=== PATIENT | female | born 1965 | race Caucasian/White ===

== ENCOUNTER 2023-07-17 18:35 | Inpatient (IN) | payer OTHER, SELFPAY ==
--- NOTE | ~2023-07-17 | XR_ITS ---
EXAMINATION: XR CHEST CLINICAL INFORMATION: Pain COMPARISON: None available. TECHNIQUE: Frontal view of the chest was obtained. FINDINGS: Cardiac and mediastinal contours are normal. The lungs are clear. No pleural effusion or pneumothorax. Degenerative changes of the spine. XR/XR chest 1V IMPRESSION: No evidence for acute disease in the chest.
--- NOTE | ~2023-07-17 | US_ITS ---
EXAMINATION: US ABDOMEN LIMITED CLINICAL INFORMATION: Nausea, vomiting, fatty liver. COMPARISON: CT abdomen and pelvis of 07/17/2023. TECHNIQUE: Real-time imaging of the right upper quadrant abdominal viscera. Limited visualization due to bowel gas and body habitus. FINDINGS: PANCREAS: Limited visualization of pancreatic tail and head. Imaged portion of pancreatic body is unremarkable. LIVER: Nodular hepatic contour with diffusely heterogeneous and increased echogenicity of hepatic echotexture concerning for hepatocellular disease, possibly with associated sclerosis as noted on prior CT scan. Severely limited visualization. GALLBLADDER: Multiple gallstones. Gallbladder wall thickening of 4-7 mm. Possible edematous changes in the gallbladder wall. Possible trace pericholecystic fluid is difficult to evaluate due to limited visualization. COMMON BILE DUCT: Normal in caliber measuring 4 cm in diameter. RIGHT KIDNEY: No hydronephrosis. No renal calculi. Limited visualization. The kidney measures 10.5 cm in maximum dimension. FREE FLUID: None. US/US abdomen limited IMPRESSION: 1. Nodular hepatic contour with diffusely heterogeneous and increased echogenicity of hepatic echotexture concerning for hepatocellular disease, possibly with associated sclerosis as noted on prior CT scan. Severely limited visualization. 2. Multiple gallstones. Gallbladder wall thickening of 4-7 mm. Possible edematous changes in the gallbladder wall. Possible trace pericholecystic fluid is difficult to evaluate due to limited visualization. Correlation with clinical exam and possible HIDA scan recommended. This study was presented today 07/18/2023 for interpretation. Stat results provided at this time as requested by referring provider.
--- NOTE | ~2023-07-17 | CT_ITS ---
EXAMINATION: CT ABDOMEN AND PELVIS WITH CONTRAST CLINICAL INFORMATION: Vomiting COMPARISON: None available. TECHNIQUE: Multidetector volumetric images were obtained from the superior aspect of the liver through the pubic symphysis following administration 85 mL of Omnipaque 350 intravenous contrast. Sagittal and coronal reformatted images were obtained on the technologist's workstation. Oral contrast: Yes This CT examination was performed using dose optimization techniques as appropriate, variously including the following: *Automated exposure control *Adjustment of mA and/or kV according to patient size (this includes techniques or standardized protocols for targeted exams where dose is matched to indication/reason for exam; i.e. extremities or head) *Use of iterative reconstruction technique DLP: 556 mGy-cm FINDINGS: LUNG BASES: The visualized lung bases are unremarkable. LIVER, GALLBLADDER, AND BILIARY TREE: Cirrhotic appearing liver. No focal liver lesion. Upper normal-size gallbladder and small gallstones. Question small amount of pericholecystic fluid or gallbladder wall edema adjacent to the liver. No generalized ascites. PANCREAS: Unremarkable. SPLEEN: Slightly enlarged spleen measuring 13.5 cm. ADRENAL GLANDS: 1 cm low-attenuation left adrenal nodule suggestive of a benign lipid rich adenoma. No imaging follow-up recommended. Normal right adrenal gland. KIDNEYS AND URETERS: The kidneys are normal in size, shape, and attenuation. No hydronephrosis, hydroureter, or calculi seen. No perinephric stranding. BLADDER: Unremarkable. GASTROINTESTINAL TRACT: Diverticulosis of the colon. No evidence of diverticulitis. The small and large bowel are unremarkable. The appendix is unremarkable. ABDOMINAL WALL: No significant hernia is appreciated. LYMPH NODES: Normal. VASCULAR: Unremarkable. PELVIC VISCERA: Question fibroid uterus. OSSEOUS STRUCTURES: Degenerative changes of the spine and hip joints. CT/CT abdomen pelvis w IV con IMPRESSION: Chronic appearing liver. Upper normal-size gallbladder, gallstones and question of small amount of pericholecystic fluid versus gallbladder wall edema adjacent to the liver. If there is clinical concern of cholecystitis, follow-up ultrasound would be recommended. Slightly enlarged spleen. Diverticulosis. Probable fibroid uterus. Fleischner guidelines were followed.
[2023-07-17 18:45] VITALS: BP 232/113; PULSE 59; RESP 16; TEMP 36.5; O2SAT 99; BMI 27.5
--- NOTE | 2023-07-17 18:48 | ED_ITS ---
HPI - Nausea/Vomiting/Diarrhea General Chief complaint: General Medical Stated complaint: high bp, vomiting, nausea sent from urgent care Time Seen by Provider: 07/17/23 19:39 Source: patient, RN notes reviewed and old records reviewed Mode of arrival: ambulatory Limitations: no limitations History of Present Illness ED Provider: García HESTER Narrative: 58-year-old female with a past medical history significant for untreated hypertension presents for evaluation of dizziness and high blood pressure. The patient reports she has been having dizziness for the last 2 days with associated nausea and vomiting. She denies any pain including headache, chest pain, abdominal pain She reports that she went to an urgent care earlier today due to the dizziness and was found to be hypertensive with a blood pressure over 230 systolic. Patient states that she has been on blood pressure medication years ago but she had issues with her primary doctor getting it refilled and just stopped taking it on her own She denies any other complaints or concerns at this time She does admit that her co-worker who she was recently hang out with 4 days ago was diagnosed with COVID-19 today Patient denies any cough, shortness of breath but did state that she would intermittent subjective fevers Associated nausea: Yes Related Data Home Medications ?Medication ?Instructions ?Recorded ?Confirmed No Known Home Meds 07/18/23 07/18/23 Allergies Allergy/AdvReac Type Severity Reaction Status Date / Time No Known Allergies Allergy Verified 07/17/23 18:47 Review of Systems 2 Constitutional: Constitutional: Denies body ache(s), Denies chills, Reports fever(s) and Denies headache(s) Eyes: Eyes: Denies blurry vision ENT: Reports dizziness and Denies headache(s) Cardiovascular: Cardiovascular: Denies chest pain and Denies dyspnea Respiratory: Respiratory: Denies cough and Denies dyspnea Gastrointestinal: Gastrointestinal: Denies abdominal pain, Reports nausea and Reports vomiting Musculoskeletal: Musculoskeletal: Denies back pain Integumentary/Breasts: Skin/Breast: Denies rash Neurologic: Reports dizziness and Denies headache(s) [facility] Past Medical History Medical History (Updated 07/18/23 @ 01:42 by Isabelle Pearce MD) Thrombocytopenia Hypertension Fatty liver Social History Social History Patient Tobacco Use Status: Never used Tobacco Smoked in Last 30 Days: No Use of substances other than those prescribed or required for medical reasons: No Advance Directives: No Advance Directives Information Provided: No Do you have a plan to hurt others: No Plan Nutrition Risks: No Nutritional Risk Patient : No Physical Exam 2 Vital Signs: Vital Signs: Last Vital Signs Temp 98.0 F 07/18/23 11:36 Pulse 63 07/18/23 11:36 Resp 16 07/18/23 11:36 BP 160/90 H 07/18/23 11:36 Pulse Ox 97 07/18/23 11:36 O2 Del Method Room Air 07/18/23 11:36 BMI result Body Mass Index 27.5 Const: General: healthy appearing, comfortable, no acute distress, alert and awake Nutritional Appearance: well nourished Orientation/consciousness: p atient oriented x3 HEENT: Head: Yes normocephalic and Yes atraumatic Eyes: Eyelids: Yes eyelids normal Conjunctivae: conjunctivae normal S clerae: sclerae normal Corneas: corneas normal Pupils: Equal, round and reactive pupils present EOM: EOMs intact bilaterally Resp: Effort & Inspection: normal respiratory effort, able to speak in complete sentences, no audible wheezes and not labored Auscultation: clear to auscultation bilaterally Cardio: Rate: regular rate Rhythm: regular rhythm GI: Inspection: No distended Palpation (GI): Soft to palpation, not firm, nontender, no guarding and not rigid Skin: General skin exam: no rashes or lesions noted and elasticity normal Neuro: General: patient oriented x3 Cranial nerves: Yes Equal, round and reactive pupils present and Yes Bilaterally intact EOM present Cognition (Neuro): normal cognition Course Course Course Narrative: This is a Rapid Medical Examination (RME) performed by Dania Leonard PA-C in triage. Full HPI, ROS, assessment and treatment plan per primary provider in the Main ED. 58 yo female hx of uncontrolled HTN presents to the ED with vomiting x3 days. poop PO intake. endorses asso dizziness. Seen at urgent care today, noted to have high blood pressure and was sent to ED for evaluation. Used to take lisinopril and amlodipine however has not taken these in years. states her symptoms feels like vertigo. denies headache, vision changes, abdominal pain, flank pain, dysuria, hematuria. Plan: labs, EKG Medications Administered Generic Name Dose Route Start Last Admin Trade Name Freq PRN Reason Stop Dose Admin Amlodipine Besylate 5 mg 07/18/23 09:00 07/18/23 08:39 Amlodipine Besylate 5 Mg Tablet PO 5 mg DAILY MICHAEL Administration Protocol Ceftriaxone Sodium 1 gm/ 50 mls @ 100 mls/hr 07/18/23 11:00 07/18/23 11:33 Sodium Chloride IV 100 mls/hr Q24H MICHAEL Administration Lisinopril 20 mg 07/18/23 09:00 07/18/23 08:39 Lisinopril 20 Mg Tablet PO 20 mg DAILY MICHAEL Administration Protocol Ondansetron HCl 4 mg 07/17/23 23:46 07/18/23 06:23 Ondansetron Hcl 4 Mg/2 Ml Vial IVPUSH 4 mg Q8H PRN Administration Nausea and Vomiting Sodium Chloride 3 ml 07/18/23 00:00 07/18/23 08:56 0.9 % Sodium Chloride Flush 3 Ml Syringe IVFLUSH Not Given QSHIFT MICHAEL Discontinued Medications Generic Name Dose Route Start Last Admin Trade Name Freq PRN Reason Stop Dose Admin Amlodipine Besylate 5 mg 07/18/23 01:35 07/18/23 02:53 Amlodipine Besylate 5 Mg Tablet PO 07/18/23 01:36 5 mg ONCE ONE Administration Protocol Aspirin 324 mg 07/17/23 22:50 07/18/23 00:07 Aspirin 81 Mg Tab.Chew PO 07/17/23 22:51 324 mg ONCE ONE Administration Iohexol 85 ml 07/17/23 21:30 07/17/23 21:32 Iohexol 350 Mg/Ml 100 Ml Infus..Btl IV 07/17/23 21:31 85 ml ONCE ONE Administration Labetalol HCl 10 mg 07/17/23 19:54 07/17/23 21:13 Labetalol Hcl 100 Mg/20 Ml Vial IVPUSH 07/17/23 19:55 10 mg ONCE ONE Administration Lisinopril 10 mg 07/17/23 22:52 07/18/23 00:08 Lisinopril 10 Mg Tablet PO 07/17/23 22:53 10 mg ONCE ONE Administration Protocol Ondansetron HCl 4 mg 07/17/23 19:54 07/17/23 21:03 Ondansetron Hcl 4 Mg/2 Ml Vial IVPUSH 07/17/23 19:55 4 mg ONCE ONE Administration Potassium Chloride 40 meq 07/17/23 19:57 07/17/23 21:03 Potassium Chloride Er 20 Meq Tab.Er.Prt PO 07/17/23 19:58 40 meq ONCE ONE Administration Potassium Chloride 20 meq 07/18/23 08:01 07/18/23 08:39 Potassium Chloride Er 20 Meq Tab.Er.Prt PO 07/18/23 08:02 20 meq ONCE ONE Administration Medical Decision Making Medical Decision Making [facility] Narrative: 58-year-old female with past medical history as documented above presents for evaluation of dizziness. She was found to be hypertensive. On arrival to the ED she is quite hypertensive as high as 238/115. It is unclear what her baseline is but she does admit to not having been taking her blood pressure medications for at least a few years.. Her heart rate is in the 70s during my evaluation, will treat with labetalol 10 mg IV once. Will continue to follow closely. We will give her Zofran for her reported nausea. The patient tested negative for COVID-19, she has no pain anywhere including abdominal pain or tenderness on exam. However she does have a slight leukocytosis with vomiting and a slightly elevated T bili to 1.4 and subjective fevers. The patient does admit to having fatty liver and has a very mild transaminitis. We will get a CT scan of the abdomen pelvis. Patient's EKG does not show any acute ischemic changes, but her troponin was elevated to 212. Plan for repeat trop at the 3 hour veronika. She denies any chest pain over the last few days or currently Differential Diagnosis Differential Diagnoses: The differential diagnosis associated with the presentation includes Hypertension Hypertensive urgency NSTEMI PE less likely Cholecystitis less likely Medication noncompliance Admission/Observation Consideration of admission/observation: Escalation of care including admission/observation considered Lab Data [facility] Lab Attestation statement: I reviewed the patient's lab results. Slight leukocytosis to 11.2 K. the patient's hemoglobin and hematocrit are slightly above normal at 16.9 and 47.4. This may be related to hypovolemia. Patient does have a [place]ocyt[place] [address], but unclear etiology at this time. Her differential does show a left shift with 80% neutrophils. Chemistries are significant for a potassium of 3.0 which is likely related to her vomiting over the last 2 days. She has not on any diuretics. Glucose is elevated to 128. She is not diabetic there is no evidence of DKA. Patient's T bili is elevated to 1.3 which may be related to vomiting but also may related to her history of fatty liver. Her AST and ALT are slightly elevated also consistent with her history of fatty liver. Troponin elevated to 212 which may be related to her significant hypertension. 07/18/23 04:54 07/18/23 04:54 Labs: Lab Results 07/17/23 07/17/23 07/17/23 Range/Units 19:05 20:01 22:01 WBC 11.2 H (4.8-10.8) X10*3/uL RBC 4.93 (4.20-5.50) X10*6/uL Hgb 16.9 H (12.0-16.0) g/dl Hct 47.4 H (37.0-47.0) % MCV 96.1 (80.0-98.0) fL MCH 34.3 H (27.0-33.0) pg MCHC 35.7 H (31.0-35.0) g/dl RDW 13.6 (11.0-16.0) % Plt Count 52 L (160-400) X10*3/uL MPV 11.9 (9.4-12.3) fL Immature Gran % (Auto) 0.4 (0.0-0.4) % Neut % (Auto) 80.7 H (45-73) % Lymph % (Auto) 11.5 L (20-40) % Crawford % (Auto) 6.4 (2-11) % Eos % (Auto) 0.6 (0-4) % Baso % (Auto) 0.4 (0-2) % Lymph # (Auto) 1.3 (1.2-4.9) X10*3/uL [place] # (Auto) 0.7 (0.1-1.2) X10*3/uL Eos # (Auto) 0.1 (0.0-0.4) X10*3/uL Baso # (Auto) 0.0 (0.0-0.2) X10*3/uL Abs Immat Gran (auto) 0.05 H (0.00-0.03) X10*3/uL Absolute Neuts (auto) 9.0 H (2.0-8.3) x10*3/uL Absolute Nucleated RBC 0.000 (0.0-0.012) X10*3/uL Nucleated RBC % (auto) 0.0 (0.0-0.2) /100WBC PT 12.4 (11.1-13.3) SEC INR 1.0 (0.9-1.1) APTT 31.8 (26.0-36.8) SEC D-Dimer High Sensitivty 233 NG/ML Sodium 138 (135-145) mmol/L Potassium 3.0 L (3.3-5.1) mmol/L Chloride 98 (96-108) mmol/L Carbon Dioxide 28 (22-29) mmol/L Anion Gap 15 (12-20) BUN 12 (9-16) mg/dL Creatinine 0.73 (0.5-1.4) mg/dL Estim Creat Clear Calc 84.0 Estimated GFR > 60 Random Glucose 128 H (60-115) mg/dL Calcium 9.5 (8.4-10.2) mg/dL Magnesium 2.1 (1.6-2.6) mg/dL Total Bilirubin 1.3 H (0.0-1.0) mg/dL AST 38 H (5-31) U/L ALT 38 H (0-31) U/L Alkaline Phosphatase 91 (39-117) U/L Total Creatine Kinase 93 (26-140) U/L Troponin I High Sens 212.4 H* 230.0 H* (<3.5-17.0) ng/L Total Protein 7.7 (6.5-8.0) g/dL Albumin 4.3 (3.5-5.0) g/dL Lipase 32 (8-78) U/L Influenza Type A (PCR) NEGATIVE (Negative) Influenza Type B (PCR) NEGATIVE (Negative) RSV RNA Qual (PCR) NEGATIVE (Negative) SARS-CoV-2 RNA (RT-PCR) NEGATIVE (Negative) Independent Interpretation I performed an independent interpretation of an: EKG Interpretation: Sinus bradycardia with a rate of [address] segment elevations or depressions. The patient does have T-wave inversions in lead 3. There is no previous for comparison Discharge Plan Discharge Clinical Impression: Vomiting, Elevated troponin Patient Disposition: Still a Patient
--- NOTE | 2023-07-17 18:50 | ECG_ITS ---
Test Reason : HYPERTENSION Blood Pressure : / mmHG Vent. Rate : 053 BPM Atrial Rate : 053 BPM P-R Int : 136 ms QRS Dur : 078 ms QT Int : 448 ms P-R-T Axes : 006 -09 005 degrees QTc Int : 420 ms Sinus bradycardia Septal infarct , age undetermined Abnormal ECG No previous ECGs available Referred By: Sue Leonard Electronically Signed By:CHATO BENJAMIN MD
[2023-07-17 19:11] LABS: MANUAL DIFF FLAG NO
[2023-07-17 19:28] LABS: Alanine Aminotransferase 38 U/L (0-31); Albumin Level 4.3 g/dL (3.5-5.0); Alkaline Phosphatase 91 U/L (39-117); Anion Gap 15 (12-20); Aspartate Amino Transferase 38 U/L (5-31); Bilirubin Total 1.3 mg/dL (0.0-1.0); Blood Urea Nitrogen 12 mg/dL (9-16); Calcium 9.5 mg/dL (8.4-10.2); Carbon Dioxide 28 mmol/L (22-29); Chloride 98 mmol/L (96-108); Estimated Glomerular Filt Rate > 60; Glucose Random 128 mg/dL (60-115); Lipase 32 U/L (8-78); Magnesium 2.1 mg/dL (1.6-2.6); Sodium 138 mmol/L (135-145); Total Protein 7.7 g/dL (6.5-8.0)
[2023-07-17 19:41] VITALS: BP 226/101; BP 238/115; PULSE 56; PULSE 71; RESP 19; TEMP 36.8; O2SAT 98
[2023-07-17 19:41] LABS: Troponin-I High Sensitivity 212.4 ng/L (<3.5-17.0)
[2023-07-17 19:45] LABS: Basophils Percent Auto 0.4 % (0-2); Eosinophils Absolute Auto 0.1 X10*3/uL (0.0-0.4); Eosinophils Percent Auto 0.6 % (0-4); Hematocrit 47.4 % (37.0-47.0); Hemoglobin 16.9 g/dl (12.0-16.0); Imm Gran Abs Auto 0.05 X10*3/uL (0.00-0.03); Imm Gran Pct Auto 0.4 % (0.0-0.4); Lymphocytes Absolute Auto 1.3 X10*3/uL (1.2-4.9); Lymphocytes Percent Auto 11.5 % (20-40); Mean Corpuscular HGB Conc 35.7 g/dl (31.0-35.0); Mean Corpuscular Hemoglobin 34.3 pg (27.0-33.0); Mean Corpuscular Volume 96.1 fL (80.0-98.0); Mean Platelet Volume 11.9 fL (9.4-12.3); Monocytes Absolute Auto 0.7 X10*3/uL (0.1-1.2); Monocytes Percent Auto 6.4 % (2-11); Neutrophils Percent Auto 80.7 % (45-73); Red Blood Count 4.93 X10*6/uL (4.20-5.50); Red Cell Distribution Width 13.6 % (11.0-16.0); White Blood Count 11.2 X10*3/uL (4.8-10.8)
[2023-07-17 19:55] LABS: Influenza A PCR NEGATIVE (Negative); Influenza B PCR NEGATIVE (Negative); Resp Syncy Virus RNA Qual PCR NEGATIVE (Negative); SARS COV2 PCR INHOUSE NEGATIVE (Negative)
[2023-07-17 20:01] LABS: Platelet Count 52 X10*3/uL (160-400)
[2023-07-17 20:17] LABS: Prothrombin Time 12.4 SEC (11.1-13.3)
[2023-07-17 20:19] LABS: D Dimer High Sensitivity 233 NG/ML
[2023-07-17 20:20] LABS: Partial Thromboplastin Time 31.8 SEC (26.0-36.8)
[2023-07-17] MEDS: Potassium Chloride ER 20 MEQ TAB.ER.PRT 40 MEQ PO (21:03)
[2023-07-17] MEDS: ondansetron HCL 4 MG/2 ML VIAL IVPUSH (21:03)
[2023-07-17 21:13] VITALS: BP 189/90; PULSE 58; PULSE 59; RESP 12
[2023-07-17] MEDS: Labetalol HCL 100 MG/20 ML VIAL 10 MG IVPUSH (21:13)
[2023-07-17] MEDS: iohexoL 350 MG/ML 100 ML INFUS..BTL 85 ML IV (21:32)
[2023-07-17 21:57] VITALS: BP 197/94; PULSE 53; RESP 12; TEMP 36.8; O2SAT 98
--- NOTE | 2023-07-17 23:48 | P.HPHOSP_ITS ---
History of Present Illness Date of Service: 07/18/23 Chief Complaint: Dizziness and vomiting This is a 58-year-old female with pertinent history of hypertension, fatty liver, thrombocytopenia who presents to the emergency department for evaluation of dizziness and vomiting. Patient states her symptoms started 2 days prior to presentation. She has been having occasional dizziness. Also has been having multiple episodes of nausea and nonbloody emesis over the last 2 days. Patient states she went to urgent care and found her blood pressure was significantly elevated with systolic around 230. States she was diagnosed with hypertension and was on lisinopril and amlodipine which she last took many years ago. Patient had issues with getting her medications refilled with PCP and hence stopped taking prescription medications. She states she bruises easily and her platelets counts have always been low. Also known to have fatty liver. No fever, chills, abdominal pain, diarrhea. Denies chest discomfort, shortness of breath, palpitations, changes in urinary or bowel habits. In the emergency department, blood pressure 238/115 and patient was given IV labetalol on p.o. lisinopril. Also found to have thrombocytopenia, elevated troponin Review of Systems 2 Constitutional: Constitutional: Reports fatigue ENT: Reports dizziness Cardiovascular: Cardiovascular: Reports no additional cardiovascular complaints Respiratory: Respiratory: Reports no additional respiratory complaints Gastrointestinal: Gastrointestinal: Reports nausea and Reports vomiting Genitourinary: Genitourinary: Reports no additional female genitourinary complaints Musculoskeletal: Musculoskeletal: Reports no additional musculoskeletal complaints Neurologic: Reports dizziness Endocrine: Endocrine: Reports fatigue [facility] Medical History (Updated 07/18/23 @ 01:42 by Isabelle Pearce MD) Thrombocytopenia Hypertension Fatty liver Pertinent family history: No family history of early CAD Social History Advance Directives: No Advance Directives Information Provided: No Do you have a plan to hurt others: No Plan Meds Allergies Allergy/AdvReac Type Severity Reaction Status Date / Time No Known Allergies Allergy Verified 07/17/23 18:47 Physical Exam 2 Vital Signs and Narrative: Vital Signs: Last Vital Signs Temp 98.3 F 07/17/23 21:57 Pulse 53 07/17/23 21:57 Resp 12 07/17/23 21:57 BP 197/94 H 07/17/23 21:57 Pulse Ox 98 07/17/23 21:57 O2 Del Method Room Air 07/17/23 21:57 BMI result Body Mass Index 27.5 Middle-aged female lying in bed in no distress Neck supple, no JVD Regular rate and rhythm, S1-S2 heard Regular breath sounds bilaterally, no wheezing or crackles appreciated Abdomen soft nontender, no guarding, no rigidity Patient is awake, alert and oriented to self, place, time and person ; no focal motor deficit Psych: Normal mood No pedal edema Results Labs 07/17/23 19:05 07/17/23 19:05 Labs: Laboratory Results - last 24 hr 07/17/23 07/17/23 07/17/23 19:05 20:01 22:01 MCV 96.1 MCH 34.3 H MCHC 35.7 H RDW 13.6 Plt Count 52 L MPV 11.9 Immature Gran % (Auto) 0.4 Neut % (Auto) 80.7 H Lymph % (Auto) 11.5 L [place] % (Auto) 6.4 Eos % (Auto) 0.6 Baso % (Auto) 0.4 Lymph # (Auto) 1.3 [place] # (Auto) 0.7 Eos # (Auto) 0.1 Baso # (Auto) 0.0 Abs Immat Gran (auto) 0.05 H Absolute Neuts (auto) 9.0 H Absolute Nucleated RBC 0.000 Nucleated RBC % (auto) 0.0 PT 12.4 INR 1.0 APTT 31.8 D-Dimer High Sensitivty 233 Anion Gap 15 Estim Creat Clear Calc 84.0 Estimated GFR > 60 Random Glucose 128 H Calcium 9.5 Magnesium 2.1 Total Bilirubin 1.3 H AST 38 H ALT 38 H Alkaline Phosphatase 91 Total Creatine Kinase 93 Troponin I High Sens 212.4 H* 230.0 H* Total Protein 7.7 Albumin 4.3 Lipase 32 Influenza Type A (PCR) NEGATIVE Influenza Type B (PCR) NEGATIVE RSV RNA Qual (PCR) NEGATIVE SARS-CoV-2 RNA (RT-PCR) NEGATIVE Imaging Radiologist's Impressions: Impressions Chest X-Ray 07/17/23 20:10 IMPRESSION: No evidence for acute disease in the chest. Abdomen/Pelvis CT 07/17/23 21:51 IMPRESSION: Chronic appearing liver. Upper normal-size gallbladder, gallstones and question of small amount of pericholecystic fluid versus gallbladder wall edema adjacent to the liver. If there is clinical concern of cholecystitis, follow-up ultrasound would be recommended. Slightly enlarged spleen. Diverticulosis. Probable fibroid uterus. Fleischner guidelines were followed. Assessment and Plan (1) Hypertensive urgency: Status: Acute (2) Elevated troponin: Status: Acute (3) Vomiting: Status: Acute Plan This is a 58-year-old female with pertinent history of hypertension, fatty liver, thrombocytopenia who presents to the emergency department for evaluation of dizziness and vomiting. #. Hypertensive urgency/emergency: Due to medication noncompliance. Will admit patient with cardiac monitoring. Appropriate lowering of blood pressure in the ER with IV labetalol and p.o. lisinopril. Initiating p.o. amlodipine NPO lisinopril. Monitor blood pressure and titrate antihypertensives. Obtaining UA and echo #. Nausea and vomiting, likely in the setting of above: Patient without right epigastric pain or tenderness. CT with questionable pericholecystic fluid. Will obtain ultrasound #. Elevated troponin, likely type 2 in the setting of increased demand. Trend #. Cirrhosis due to NAFLD: Will need outpatient GI follow up #. Thrombocytopenia, chronic due to liver cirrhosis: Continue to monitor, above transfusion threshold. Defer prophylactic Lovenox. #. Hypokalemia due to GI losses: Repleted DVT prophylaxis: Mechanical Full code Admit as inpatient and will require two night minimum hospital stay for monitoring of hemodynamics, optimization of antihypertensives (as above), which is not possible in a lesser acute setting. Quality Stroke Does the patient have a stroke diagnosis?: No VTE Prior VTE?: No VTE Risk Level:: Medical - moderate - high VTE Device Contraindication: N/A - Device Ordered VTE Drug Contraindication: Treatment Not Indicated
[2023-07-17 23:53] VITALS: BP 188/86; PULSE 61; RESP 12; TEMP 37.1; O2SAT 98
[2023-07-18] VITALS (10 sets, daily range): BP systolic 146–199; BP diastolic 78–95; PULSE 54–70; RESP 13–20; TEMP 36.3–36.7; O2SAT 95–99; BMI 29.1
[2023-07-18] MEDS: Aspirin 81 MG TAB.CHEW 324 MG PO (00:07)
[2023-07-18] MEDS: lisinopriL 10 MG TABLET PO (00:08)
[2023-07-18] MEDS: amLODIPine Besylate 5 MG TABLET PO ×2 (02:53→08:39)
[2023-07-18 06:11] LABS: Appearance Urine Cloudy; Color Urine Dark Yellow; Glucose Urine UA Negative (Negative); Leukocyte Esterase Urine Large (3+) (Negative); Nitrite Urine Positive (Negative); PH 6.5 (5.0-9.0); Specific Gravity - Urine >= 1.030 (1.005-1.025); UMIC TRIGGER UACC YES; Urine Blood Trace (Negative); Urine Ketones Negative (Negative); Urine Protein Trace mg/dL (Neg-Trace)
[2023-07-18] MEDS: ondansetron HCL 4 MG/2 ML VIAL IVPUSH (06:23)
[2023-07-18 06:27] LABS: Hemoglobin 15.9 g/dl (12.0-16.0); Mean Corpuscular HGB Conc 34.6 g/dl (31.0-35.0); Mean Corpuscular Hemoglobin 33.7 pg (27.0-33.0); Mean Corpuscular Volume 97.5 fL (80.0-98.0); Mean Platelet Volume 12.3 fL (9.4-12.3); Platelet Count 52 X10*3/uL (160-400); Red Blood Count 4.72 X10*6/uL (4.20-5.50); Red Cell Distribution Width 13.7 % (11.0-16.0); White Blood Count 9.8 X10*3/uL (4.8-10.8)
[2023-07-18 06:29] LABS: Bacteria Urine 4+ (None Seen); Hyaline Casts Urine 0-2 /LPF (0-2); RBC Urine 0-2 /HPF (0-2); Squamous Epithelial Cell Urine 0-2 /HPF (0-2); UACC Culture Trigger YES; WBC Urine >50 /HPF (0-5)
[2023-07-18 06:44] LABS: Anion Gap 14 (12-20); Blood Urea Nitrogen 8 mg/dL (9-16); Calcium 9.3 mg/dL (8.4-10.2); Carbon Dioxide 31 mmol/L (22-29); Chloride 100 mmol/L (96-108); Creatinine Clr Calc Pharmacy 87.6; Estimated Glomerular Filt Rate > 60; Glucose Random 110 mg/dL (60-115); Potassium 3.2 mmol/L (3.3-5.1); Sodium 142 mmol/L (135-145)
[2023-07-18 06:54] LABS: Troponin-I High Sensitivity 234.1 ng/L (<3.5-17.0)
--- NOTE | 2023-07-18 07:00 | CA_ITS ---
Transthoracic Echocardiogram Patient (Last, First, Middle): Indu Cao J Gender: Female Date of : 1965 Age: 58 Procedure Date: 07/18/2023 Procedure Type: Transthoracic Echocardiogram Location: ER Height: 162.56 cm Weight: 72.58 kg BSA: 1.78 m2 Heart Rate: 59 bpm BP: 153 / 81 mmHg General Studies Program Chair: NADINE Referring MD: Isabelle Pearce MD Training Generalist: Gerry Major MD Symptoms: htn emergency Study Quality: Adequate ECG Rhythm: Bradycardia Conclusions: - 1. Normal LV ejection fraction at 60-65% with normal diastolic filling pattern 2. Normal cardiac valvular Dopplers 3. Mildly dilated ascending aorta at 3.8 cm 4. No gross pericardial effusion Findings Left Ventricle Normal left ventricular size, thickness, and systolic function. The visually estimated ejection fraction is between 60-65%. Spectral Doppler is indicative of a normal filling pattern. Right Ventricle Normal right ventricular cavity size and systolic function. Atria The left atrium is likely dilated. There is no evidence of interatrial shunt. The right atrium is normal in size. Aortic Valve Normal aortic valve structure and function. There is no aortic valve stenosis. There is no aortic valve regurgitation. Mitral Valve Normal mitral valve structure and function. There is trace mitral valve regurgitation. There is no mitral valve stenosis. Pulmonic Valve The pulmonic valve is likely normal. Tricuspid Valve Normal tricuspid valve structure. Tricuspid regurgitation envelope is inadequate for calculation of right ventricular systolic pressure. Normal right atrial pressure. Great Vessels The pulmonary artery was not well visualized. There is mild dilatation of the ascending aorta measuring 3.80 cm. Venous The inferior vena cava is normal in size and collapses greater than 50% with inspiration. Pericardium/Pleural There is no evidence of pericardial effusion. Prior Study Comparison No prior study available for comparison. Measurements 2D Linear Measurements IVSd: 1.07 0.6-0.9/0.6-1.0 cm LVIDd: 4.73 3.9-5.3/4.2-5.9 cm LVIDd Index: 2.66 2.4-3.2/2.2-3.1 cm/m2 LVIDs: 3.32 2.0-3.6 cm LVPWd: 0.77 0.7-1.1 cm LA Diam: 3.70 2.7-3.8/3.0-4.0 cm LAIDs Index: 2.08 1.5-2.3 cm/m2 LV Mass: 185.02 67-162/88-224 g LV Mass Index: 103.94 43-95/49-115 g/m2 LVOT Diam: 2.10 3.0+(-)1.3 cm 2D Volumes RA ESV A/L: 24.70 19-21 ML/M2 2D Systolic Function EF 4C: 51.50 >55% EF 2C: 72.10 >55% EF BiP: 62.60 >55% Mitral Valve MV Pk E: 0.77 MV PK A: 0.65 MV Decel Time: 216.00 E/A: 1.20 E'Lateral: 8.05 E'Medial: 6.42 E/E' Med: 11.90 E/E' Lat: 9.50 PHT: 63.00 MVA PHT: 3.49 Decel Owen: 3.55 Aortic Valve AoV Pk Rudy: 1.43 AoV Pk Grad: 8.00 LVOT LVOT Pk Rudy: 1.23 LVOT Mn Rudy: 0.79 LVOT VTI: 0.27 LVOT Pk Grad: 6.00 LVOT Mn Grad: 3.00 LVOT Diam: 2.10 LVOT Area: 3.46 Diastolic Function MV Pk E: 0.77 MV Pk A: 0.65 E/A: 1.20 E'Medial: 6.42 E/E' Med: 11.90 E' Laterial: 8.05 E/E' Lat: 9.50 Right Ventricle TAPSE (mm): 24.80 TVS' Rudy: 14.50 Tricuspid Valve RA Press: 8.00 Great Vessels Aorta Sinus of Valsalva: 3.10 2.0-3.5 cm Ao Asc: 3.80 2.1-3.4 cm Ao Arch: 3.10 Ao Desc: 2.50 Pulmonary Veins Pulm Vein S/D 1.70 Pulmonary Valve PV Pk Rudy: 0.96 Peak PV Grad: 4.00 Updated in Other Vendor System with Status of Final Gerry Major MD electronically signed on 07/18/2023 11:47:44 AM with status of Final
[2023-07-18] MEDS: Potassium Chloride ER 20 MEQ TAB.ER.PRT PO (08:39)
[2023-07-18] MEDS: lisinopriL 20 MG TABLET PO (08:39)
--- NOTE | 2023-07-18 08:56 | PC.NURSE ---
this RN resumed care of pt at 0700. a&ox4. vss and up to date. 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 pt verbalizing previous medication administration for nausea was effective. medication administered per provider order. denies pain/has no acute complaints aside from being upset w/ not sleeping and food from the cafeteria. pt educated that she will be able to choose own food once admitted upstairs - still remains upset. echo being completed at this time. cardiology consult still pending at this time. no sob/wob noted. respirations even/unlabored. pt waiting for bed assignment at this time. plan of care ongoing. call sheikh placed within reach.
--- NOTE | 2023-07-18 09:13 | PHA.MEDREC ---
Pharmacy Consult ? Medication Reconciliation Pharmacy has completed the medication reconciliation.patient reports she isn't taking any medication at this time
--- NOTE | 2023-07-18 10:39 | HO.PM.IMPN ---
Subjective Subjective Date of Service: 07/18/23 Interval History: Admitted for nausea vomiting and dizziness of 2 days' duration and noted to have elevated blood pressure 238/115 diagnosed with hypertensive urgency. Patient denies chest pain, no palpitations or shortness of breath. Complaining of mild nausea has not eaten since admission, denies headache, no dizziness, denies abdominal pain, no fevers, no urinary symptoms, decreased urinary output. Review of Systems All other system reviewed and negative. Physical Exam Vital Signs: Vital Signs: Last Vital Signs Temp 98.0 F 07/18/23 04:42 Pulse 66 07/18/23 10:20 Resp 13 07/18/23 10:20 BP 146/78 H 07/18/23 10:20 Pulse Ox 96 07/18/23 10:20 O2 Del Method Room Air 07/18/23 10:20 BMI result Body Mass Index 27.5 Const: Other: General awake alert x3, resting comfortably in no acute distress. Anicteric sclera Neck supple no JVD. CVS regular rate rhythm, Respiratory lungs clear to auscultation, no respiratory distress, no wheeze, no rhonchi. Gastrointestinal abdomen soft, no right upper quadrant tenderness, bowel sounds audible, no guarding , no rigidity. Extremities no edema. Neuro non focal Skin no rash Psych appropriate affect Objective Data Active Medications Acetaminophen (Acetaminophen 325 Mg Tablet) 650 mg PO Q6H PRN PRN Reason: Pain, Mild (Pain Scale 1-3) Amlodipine Besylate (Amlodipine Besylate 5 Mg Tablet) 5 mg PO DAILY [facility]; Protocol Last Admin: 07/18/23 08:39 Dose: 5 mg Documented By: RITESH Lisinopril (Lisinopril 20 Mg Tablet) 20 mg PO DAILY [facility]; Protocol Last Admin: 07/18/23 08:39 Dose: 20 mg Documented By: RITESH Melatonin (Melatonin 3 Mg Tablet) 6 mg PO BEDTIME PRN PRN Reason: Insomnia Ondansetron HCl (Ondansetron Hcl 4 Mg/2 Ml Vial) 4 mg IVPUSH Q8H PRN PRN Reason: Nausea and Vomiting Last Admin: 07/18/23 06:23 Dose: 4 mg Documented By: NAYE Sodium Chloride (0.9 % Sodium Chloride Flush 3 Ml Syringe) [facility] Last Admin: 07/18/23 08:56 Dose: Not Given Documented By: RITESH Non-Admin Reason: Patient Refused Labs 07/18/23 04:54 07/18/23 04:54 Labs: Laboratory Results - last 24 hr 07/17/23 07/17/23 07/17/23 19:05 20:01 22:01 MCV 96.1 MCH 34.3 H MCHC 35.7 H RDW 13.6 Plt Count 52 L MPV 11.9 Immature Gran % (Auto) 0.4 Neut % (Auto) 80.7 H Lymph % (Auto) 11.5 L [place] % (Auto) 6.4 Eos % (Auto) 0.6 Baso % (Auto) 0.4 Lymph # (Auto) 1.3 [place] # (Auto) 0.7 Eos # (Auto) 0.1 Baso # (Auto) 0.0 Abs Immat Gran (auto) 0.05 H Absolute Neuts (auto) 9.0 H Absolute Nucleated RBC 0.000 Nucleated RBC % (auto) 0.0 PT 12.4 INR 1.0 APTT 31.8 D-Dimer High Sensitivty 233 Anion Gap 15 Estim Creat Clear Calc 84.0 Estimated GFR > 60 Random Glucose 128 H Calcium 9.5 Magnesium 2.1 Total Bilirubin 1.3 H AST 38 H ALT 38 H Alkaline Phosphatase 91 Total Creatine Kinase 93 Troponin I High Sens 212.4 H* 230.0 H* Total Protein 7.7 Albumin 4.3 Lipase 32 Urine Color Urine Appearance Urine pH Ur Specific [place] Urine Protein Urine Glucose (UA) Urine Ketones Urine Blood Urine Nitrite Ur Leukocyte Esterase Urine RBC Urine WBC Ur Squamous Epith Cells Urine Bacteria Hyaline Casts Influenza Type A (PCR) NEGATIVE Influenza Type B (PCR) NEGATIVE RSV RNA Qual (PCR) NEGATIVE SARS-CoV-2 RNA (RT-PCR) NEGATIVE 07/18/23 07/18/23 04:54 06:04 MCV 97.5 MCH 33.7 H MCHC 34.6 RDW 13.7 Plt Count 52 L MPV 12.3 Immature Gran % (Auto) Neut % (Auto) Lymph % (Auto) [place] % (Auto) Eos % (Auto) Baso % (Auto) Lymph # (Auto) [place] # (Auto) Eos # (Auto) Baso # (Auto) Abs Immat Gran (auto) Absolute Neuts (auto) Absolute Nucleated RBC 0.000 Nucleated RBC % (auto) 0.0 PT INR APTT D-Dimer High Sensitivty Anion Gap 14 Estim Creat Clear Calc 87.6 Estimated GFR > 60 Random Glucose 110 Calcium 9.3 Magnesium Total Bilirubin AST ALT Alkaline Phosphatase Total Creatine Kinase Troponin I High Sens 234.1 H* Total Protein Albumin Lipase Urine Color Dark Yellow Urine Appearance Cloudy Urine pH 6.5 Ur Specific [place] >= 1.030 H Urine Protein Trace Urine Glucose (UA) Negative Urine Ketones Negative Urine Blood Trace H Urine Nitrite Positive H Ur Leukocyte Esterase Large (3+) H Urine RBC 0-2 Urine WBC >50 H Ur Squamous Epith Cells 0-2 Urine Bacteria 4+ Hyaline Casts 0-2 Influenza Type A (PCR) Influenza Type B (PCR) RSV RNA Qual (PCR) SARS-CoV-2 RNA (RT-PCR) Assessment and Plan (1) Hypertensive urgency: Status: Acute (2) Thrombocytopenia: Status: Acute (3) Fatty liver: Status: Acute (4) Elevated troponin: Status: Acute Plan 58-year-old female with pertinent history of hypertension, fatty liver, thrombocytopenia who presents to the emergency department for evaluation of dizziness and vomiting. #. Hypertensive urgency/emergency: Due to medication noncompliance, treated in ER with IV labetalol and p.o. lisinopril blood pressure improved Place on amlodipine 5 mg and lisinopril 10 mg blood pressure remains elevated will increase dose of lisinopril to 20 mg and follow BP. #. Nausea and vomiting, likely in the setting of hypertension and UTI No recurrent episodes of vomiting, mild nausea, will treat hypertension and infection follow clinical course CT abdomen and pelvis was concerning for pericholecystic fluid therefore abdominal ultrasound obtain that showed possible edematous changes in the gallbladder wall, possible trace pericholecystic fluid is difficult to a evaluate Due to limited visualization, normal caliber CBD, nodular hepatic contour with diffusely heterogeneous hepatic echotexture patient with known history of fatty liver Gallbladder wall edema likely due to hepatocellular disease Since patient has no abdominal pain, no fevers, no significant leukocytosis, will hold off on further testing. # UTI UA significantly positive follow urine culture treat with IV ceftriaxone started 07/17 #. Elevated troponin, Troponin 212 > 230> 234, no chest pain, EKG showed sinus bradycardia, no acute ischemic changes, likely type 2 in the setting of increased demand related to high blood pressure Follow echo if abnormal consider Cardiology well #. Cirrhosis due to NAFLD: outpatient GI follow up #. Thrombocytopenia, chronic due to liver cirrhosis: Continue to monitor, above transfusion threshold. #. Hypokalemia due to GI losses: Repleted, follow labs DVT prophylaxis: Mechanical Full code Patient will need continued inpatient hospitalization for monitoring of hemodynamics, optimization of antihypertensives (as above), which is not possible in a lesser acute setting. Quality Stroke Does the patient have a stroke diagnosis?: No VTE Prior VTE?: No VTE Risk Level:: Medical - moderate - high VTE Device Contraindication: N/A - Device Ordered VTE Drug Contraindication: Treatment Not Indicated
[2023-07-18] MEDS: cefTRIAXone sodium 1 GM in 0.9 % Sodium Chloride 50 ML IV (11:33)
--- NOTE | 2023-07-18 11:37 | PC.NURSE ---
vss adn up to date aside from being slightly hypertensive. 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 abx administered per provider order. pt waiting for bed assignment. plan of care ongoing. call sheikh placed within reach.
--- NOTE | 2023-07-18 14:00 | MHC.CM.PN ---
Pt.'s son lives with her, she does not have home health services or DME, she is independent. Her son can transport home at DC. HCP was discussed, will be completed here. PCP: Dr Christina at [facility] in [place]. DCP: home, self care, CM to follow for DC needs.
[2023-07-19] VITALS: BP 181/86; PULSE 67; RESP 18; TEMP 36.4; O2SAT 97
[2023-07-19 04:00] VITALS: BP 184/85; PULSE 62; RESP 16; TEMP 36.9; O2SAT 97
[2023-07-19 06:59] LABS: Alanine Aminotransferase 49 U/L (0-31); Albumin Level 3.6 g/dL (3.5-5.0); Alkaline Phosphatase 75 U/L (39-117); Anion Gap 13 (12-20); Aspartate Amino Transferase 65 U/L (5-31); Bilirubin Direct 0.4 mg/dL (0.0-0.5); Bilirubin Total 1.1 mg/dL (0.0-1.0); Blood Urea Nitrogen 6 mg/dL (9-16); Calcium 9.2 mg/dL (8.4-10.2); Carbon Dioxide 25 mmol/L (22-29); Chloride 106 mmol/L (96-108); Creatinine Clr Calc Pharmacy 103.4; Estimated Glomerular Filt Rate > 60; Glucose Random 100 mg/dL (60-115); Potassium 3.9 mmol/L (3.3-5.1); Sodium 140 mmol/L (135-145); Total Protein 6.9 g/dL (6.5-8.0)
[2023-07-19 07:42] VITALS: BP 198/94; PULSE 59; RESP 20; TEMP 36.1; O2SAT 96
[2023-07-19] MEDS: lisinopriL 20 MG TABLET PO (07:50)
[2023-07-19] MEDS: amLODIPine Besylate 10 MG TABLET PO (07:50)
[2023-07-19] MEDS: 0.9 % Sodium Chloride Flush 3 ML SYRINGE IVFLUSH (07:51)
[2023-07-19 08:55] VITALS: BP 168/80
[2023-07-19 11:27] VITALS: BP 142/69; PULSE 67; RESP 16; TEMP 36.8; O2SAT 96
[2023-07-19 11:28] LABS: Estimated Average Glucose 105 mg/dL; Hemoglobin A1c % 5.3 % (<6.0)
--- NOTE | 2023-07-19 11:37 | P.DS_ITS ---
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 Patient states her symptoms started 2 days prior to presentation. She has been having occasional dizziness. Also has been having multiple episodes of nausea and nonbloody emesis over the last 2 days. Patient states she went to urgent care and found her blood pressure was significantly elevated with systolic around 230. States she was diagnosed with hypertension and was on lisinopril and amlodipine which she last took many years ago. Patient had issues with getting her medications refilled with PCP and hence stopped taking prescription medications. She states she bruises easily and her platelets counts have always been low. Also known to have fatty liver. No fever, chills, abdominal pain, diarrhea. Denies chest discomfort, shortness of breath, palpitations, changes in urinary or bowel habits. In the emergency department, blood pressure 238/115 and patient was given IV labetalol on p.o. lisinopril. Also found to have thrombocytopenia, elevated troponin 58yo F with HTN + BOLANOS cirrhosis with thrombocytopenia admitted with HTN urgency due to medication non-adherence. She was started on amlodipine and lisinopril with improved blood pressure control. Vomiting resolved. CT scan showed pericholecystic fluid; US showed gallbaldder wall edema and trace pericholecystic fluid. Both studies showed nodular liver compatible with cirrhosis which per patient is likely from BOLANOS. No abdominal pain, leukocyotosis, or fever, so the gallbladder findings were attributed to cirrhosis. She was given ceftriaxone for possible UTI but as she did not actually have urinary symptoms, antibiotics were stopped. She was found to have elevated/indeterminate troponin 212->230->234 ng/L without any chest pain or ischemic changes; echocardiogram was normal and this was attributed to demand from high blood pressure. She was discharged home on amlodipine 10 mg/d and lisinopril 20 mg/d and will need repeat labs in 1 week [CBCd, CMP] as well as primary care follow-up and gastroenterology referral for cirrhosis care. Time Attestation Discharge Coordination Time (in mins): 35 Quality: Safe Use of Opioids Does Pt have an Active Cancer Diagnosis on the Problem List?: No Quality: Stroke Does the patient have a stroke diagnosis?: No Physical Exam Vital Signs: Vital Signs: Last Vital Signs Temp 98.2 F 07/19/23 11:27 Pulse 67 07/19/23 11:27 Resp 16 07/19/23 11:27 BP 142/69 H 07/19/23 11:27 Pulse Ox 96 07/19/23 11:27 O2 Del Method Room Air 07/19/23 11:27 BMI result Body Mass Index 29.1 Gen: in no acute distress HEENT: sclera anicteric, moist mucus membranes Neck: supple Lungs: clear to auscultation bilaterally Heart: regular rate and rhythm, no murmurs Abd: soft, non-tender, non-distended Ext: no edema Skin: warm/well-perfused Neuro: alert and oriented x3, no focal findings, noasterixis Psych: appropriate affect DS: Data Data Completed and Pending Completed studies during hospitalization [Text1]: Laboratory Results WBC 9.8 X10*3/uL (4.8-10.8) 07/18/23 04:54 RBC 4.72 X10*6/uL (4.20-5.50) 07/18/23 04:54 Hgb 15.9 g/dl (12.0-16.0) 07/18/23 04:54 Hct 46.0 % (37.0-47.0) 07/18/23 04:54 MCV 97.5 fL (80.0-98.0) 07/18/23 04:54 MCH 33.7 pg (27.0-33.0) H 07/18/23 04:54 MCHC 34.6 g/dl (31.0-35.0) 07/18/23 04:54 RDW 13.7 % (11.0-16.0) 07/18/23 04:54 Plt Count 52 X10*3/uL (160-400) L 07/18/23 04:54 MPV 12.3 fL (9.4-12.3) 07/18/23 04:54 Immature Gran % (Auto) 0.4 % (0.0-0.4) 07/17/23 19:05 Neut % (Auto) 80.7 % (45-73) H 07/17/23 19:05 Lymph % (Auto) 11.5 % (20-40) L 07/17/23 19:05 [place] % (Auto) 6.4 % (2-11) 07/17/23 19:05 Eos % (Auto) 0.6 % (0-4) 07/17/23 19:05 Baso % (Auto) 0.4 % (0-2) 07/17/23 19:05 Lymph # (Auto) 1.3 X10*3/uL (1.2-4.9) 07/17/23 19:05 [place] # (Auto) 0.7 X10*3/uL (0.1-1.2) 07/17/23 19:05 Eos # (Auto) 0.1 X10*3/uL (0.0-0.4) 07/17/23 19:05 Baso # (Auto) 0.0 X10*3/uL (0.0-0.2) 07/17/23 19:05 Abs Immat Gran (auto) 0.05 X10*3/uL (0.00-0.03) H 07/17/23 19:05 Absolute Neuts (auto) 9.0 x10*3/uL (2.0-8.3) H 07/17/23 19:05 Absolute Nucleated RBC 0.000 X10*3/uL (0.0-0.012) 07/18/23 04:54 Nucleated RBC % (auto) 0.0 /100WBC (0.0-0.2) 07/18/23 04:54 PT 12.4 SEC (11.1-13.3) 07/17/23 20:01 INR 1.0 (0.9-1.1) 07/17/23 20:01 APTT 31.8 SEC (26.0-36.8) 07/17/23 20:01 D-Dimer High Sensitivty 233 NG/ML 07/17/23 20:01 Sodium 140 mmol/L (135-145) 07/19/23 05:56 Potassium 3.9 mmol/L (3.3-5.1) D 07/19/23 05:56 Chloride 106 mmol/L (96-108) 07/19/23 05:56 Carbon Dioxide 25 mmol/L (22-29) 07/19/23 05:56 Anion Gap 13 (12-20) 07/19/23 05:56 BUN 6 mg/dL (9-16) L 07/19/23 05:56 Creatinine 0.61 mg/dL (0.5-1.4) 07/19/23 05:56 Estim Creat Clear Calc 103.4 07/19/23 05:56 Estimated GFR > 60 07/19/23 05:56 Random Glucose 100 mg/dL (60-115) 07/19/23 05:56 Estimat Average Glucose 105 mg/dL 07/18/23 04:54 Hemoglobin A1c % 5.3 % (<6.0) 07/18/23 04:54 Calcium 9.2 mg/dL (8.4-10.2) 07/19/23 05:56 Magnesium 2.1 mg/dL (1.6-2.6) 07/17/23 19:05 Total Bilirubin 1.1 mg/dL (0.0-1.0) H 07/19/23 05:56 Direct Bilirubin 0.4 mg/dL (0.0-0.5) 07/19/23 05:56 AST 65 U/L (5-31) H 07/19/23 05:56 ALT 49 U/L (0-31) H 07/19/23 05:56 Alkaline Phosphatase 75 U/L (39-117) 07/19/23 05:56 Total Creatine Kinase 93 U/L (26-140) 07/17/23 20:01 Troponin I High Sens 234.1 ng/L (<3.5-17.0) H* 07/18/23 04:54 Total Protein 6.9 g/dL (6.5-8.0) 07/19/23 05:56 Albumin 3.6 g/dL (3.5-5.0) 07/19/23 05:56 Lipase 32 U/L (8-78) 07/17/23 19:05 Urine Color Dark Yellow 07/18/23 06:04 Urine Appearance Cloudy 07/18/23 06:04 Urine pH 6.5 (5.0-9.0) 07/18/23 06:04 Ur Specific [place] >= 1.030 (1.005-1.025) H 07/18/23 06:04 Urine Protein Trace mg/dL (Neg-Trace) 07/18/23 06:04 Urine Glucose (UA) Negative mg/dL (Negative) 07/18/23 06:04 Urine Ketones Negative mg/dL (Negative) 07/18/23 06:04 Urine Blood Trace (Negative) H 07/18/23 06:04 Urine Nitrite Positive (Negative) H 07/18/23 06:04 Ur Leukocyte Esterase Large (3+) (Negative) H 07/18/23 06:04 Urine RBC 0-2 /HPF (0-2) 07/18/23 06:04 Urine WBC >50 /HPF (0-5) H 07/18/23 06:04 Ur Squamous Epith Cells 0-2 /HPF (0-2) 07/18/23 06:04 Urine Bacteria 4+ (None Seen) 07/18/23 06:04 Hyaline Casts 0-2 /LPF (0-2) 07/18/23 06:04 Influenza Type A (PCR) NEGATIVE (Negative) 07/17/23 19:05 Influenza Type B (PCR) NEGATIVE (Negative) 07/17/23 19:05 RSV RNA Qual (PCR) NEGATIVE (Negative) 07/17/23 19:05 SARS-CoV-2 RNA (RT-PCR) NEGATIVE (Negative) 07/17/23 19:05 Impressions Chest X-Ray 07/17/23 20:10 IMPRESSION: No evidence for acute disease in the chest. Abdomen/Pelvis CT 07/17/23 21:51 IMPRESSION: Chronic appearing liver. Upper normal-size gallbladder, gallstones and question of small amount of pericholecystic fluid versus gallbladder wall edema adjacent to the liver. If there is clinical concern of cholecystitis, follow-up ultrasound would be recommended. Slightly enlarged spleen. Diverticulosis. Probable fibroid uterus. Fleischner guidelines were followed. Abdomen Ultrasound 07/18/23 08:00 IMPRESSION: 1. Nodular hepatic contour with diffusely heterogeneous and increased echogenicity of hepatic echotexture concerning for hepatocellular disease, possibly with associated sclerosis as noted on prior CT scan. Severely limited visualization. 2. Multiple gallstones. Gallbladder wall thickening of 4-7 mm. Possible edematous changes in the gallbladder wall. Possible trace pericholecystic fluid is difficult to evaluate due to limited visualization. Correlation with clinical exam and possible HIDA scan recommended. This study was presented today 07/18/2023 for interpretation. Stat results provided at this time as requested by referring provider. TTE 07/18/23 1. Normal LV ejection fraction at 60-65% with normal diastolic filling pattern 2. Normal cardiac valvular Dopplers 3. Mildly dilated ascending aorta at 3.8 cm 4. No gross pericardial effusion Discharge Plan Discharge Anticipated Discharge Date/Time: 07/19/23 11:32 Patient Disposition: Home, Self-Care Discharge Diagnosis: hypertensive urgency cirrhosis Referrals: Kinza Duque MD [Physician] - 1 Week Irvin Willams MD [Physician] - 2 Weeks Discharge Medications: New lisinopril 20 mg Tablet 20 mg PO DAILY Qty: 30 0RF Protocol: Hold for SBP< HOLD for SBP < : 90 amlodipine 10 mg Tablet 10 mg PO DAILY Qty: 30 0RF Protocol: Hold for SBP< HOLD for SBP < : 90 Discharge Orders: Discharge Order (Routine); Ordered 07/19/23 Ordered By: Genaro Silveira Diet: Low salt diet Activity on Discharge: As tolerated Stand Alone Forms: Patient Portal Discharge page Print Language: Malay Other Ambulatory Orders: Complete Blood Count Auto Diff (Routine) Timeframe: 1 Week Facility: [facility] - Location: Laboratory Ordered By: Genaro Silveira Comprehensive Met. Panel (Routine) Timeframe: 1 Week Facility: [facility] - Location: Laboratory Ordered By: Genaro Silveira Care Plan Goals: cardiac health liver health Health Concerns: hypertensive urgency cirrhosis Plan of Treatment: Mediterranean diet; avoid sugar and alcohol take amlodipine 10 mg daily PLUS lisinopril 20 mg daily recheck labs in 1 week: CBC with differential and CMP Please follow up with your primary care doctor within 1 week. Return to the hospital if you experience recurrent or worsening symptoms. Referral to [facility] for cirrhosis care. Assessment: See Discharge Summary. Patient Instructions: Mediterranean Diet (DC)
--- NOTE | 2023-07-19 11:42 | MHC.CM.PN ---
Patient has been medically cleared for dc to home today, self care.
== END 2023-07-19 13:32 | disposition home or self-care (01) | DRG 199 ==
LOC: HO.ED 22:23 → HO.EDOVER 07-18 00:56 → HO.IMC 07-18 19:19
PROVIDERS: Hospitalist; Physician Assistant; Physician Assistant Medical; Admitting Provider Student in an Organized Health Care Education/Training Program; Emergency Provider Internal Medicine; PCP Internal Medicine; Visit Provider Family Medicine
DX: I16.0 Hypertensive urgency (principal); D69.59 Other secondary thrombocytopenia; K74.69 Other cirrhosis of liver; I10 Essential (primary) hypertension; E87.6 Hypokalemia; N39.0 Urinary tract infection, site not specified; Z20.822 Contact with and (suspected) exposure to COVID-19; K76.0 Fatty (change of) liver, not elsewhere classified; Z91.148 Patient's other noncompliance with medication regimen for other reason
CPT/HCPCS: 0241U; 36415; 71045; 74177; 76705; 80048; 80053; 80076; 81001; 82550; 83036; 83690; 83735; 84484; 85025; 85027; 85379; 85610; 85730; 87086; 87088; 87186; 93005; 93306; 99222; 99285; J0696; J1920; J2405; Q9967

== ENCOUNTER → 2023-07-17 18:50 | Outpatient (BNV) | payer OTHER, SELFPAY | PROVIDERS: Admitting Provider Student in an Organized Health Care Education/Training Program; Emergency Provider Internal Medicine; Visit Provider Internal Medicine Cardiovascular Disease | DX: I10 Essential (primary) hypertension (principal) | CPT/HCPCS: 93010 ==

== ENCOUNTER 2023-07-17 23:46 | Outpatient (BNV) | payer OTHER, SELFPAY | END 2023-07-18 07:00 | PROVIDERS: Admitting Provider Student in an Organized Health Care Education/Training Program; Emergency Provider Internal Medicine; Visit Provider Internal Medicine Cardiovascular Disease | DX: I16.1 Hypertensive emergency (principal) | CPT/HCPCS: 93306 ==

== ENCOUNTER → 2023-07-17 23:46 | Outpatient (BNV) | payer OTHER, SELFPAY | PROVIDERS: Admitting Provider Student in an Organized Health Care Education/Training Program; Emergency Provider Internal Medicine; Visit Provider Student in an Organized Health Care Education/Training Program | DX: I16.0 Hypertensive urgency (principal); D69.6 Thrombocytopenia, unspecified; K76.0 Fatty (change of) liver, not elsewhere classified; R79.89 Other specified abnormal findings of blood chemistry | CPT/HCPCS: 99223; 99233; 99239 ==

== ENCOUNTER 2023-12-16 23:10 | Emergency (ER) | payer OTHER, SELFPAY ==
[2023-12-16 23:18] VITALS: BP 158/85; PULSE 105; RESP 20; TEMP 36.7; O2SAT 99; BMI 26.9
--- NOTE | 2023-12-16 23:45 | MHC.EDTECH ---
This pct went to patient to perform an EKG and draw labs patient inquired about how much these tests would cost her. I could not give her any information about billing, I explained she would need to call her health insurance when she is discharged. Patient refused EKG and lab draws. I informed RN about the refusal
--- NOTE | 2023-12-17 00:34 | PC.NURSE ---
Pt from home, [address]. Pt reports increase life stresses, most recent breaking up with significant other. Pt reports taking 4 Tylenol PM, denies intent to OD. Reports intermittent SI, no plan. Pt reports daily ETOH use. Pt refused blood work/EKG, states I need to know if my insurance is going to cover this bill, if not I do not want anything done.
--- NOTE | 2023-12-17 00:37 | ED.PSYCH ---
HPI - Psych General Chief Complaint: Psychiatric Symptoms Stated Complaint: SI, TOOK 4 TYLENOL PM PER EMS Time Seen by Provider: 12/17/23 00:36 Source: patient Mode of arrival: EMS Limitations: no limitations History of Present Illness ED Provider: rosalva HESTER Narrative: Patient is 58 years old with no prior history of depression under lot of stress lately as she broke up today with her boyfriend after 5 years relationship. Patient had few drinks earlier today and took about 4 tablets of Tylenol PM at 21:30 and told her son who called the ambulance patient denies any suicidal plan had thoughts about sleeping but denies any suicidal feeling at this time patient refusing any labs drawn or psych infiltration Related Data Previous Rx's ?Medication ?Instructions ?Recorded amlodipine 10 mg tablet 10 mg PO DAILY #30 tabs 07/19/23 lisinopril 20 mg tablet 20 mg PO DAILY #30 tabs 07/19/23 Allergies Allergy/AdvReac Type Severity Reaction Status Date / Time No Known Allergies Allergy Verified 12/16/23 23:18 Review of Systems Review of Systems: Yes all other systems are reviewed and are negative [facility] Past Medical History Medical History Thrombocytopenia Hypertension Fatty liver Social History Social History Household Members: Family Housing: House Alcohol intake: current Alcohol intake frequency: 0-2 drinks per day Alcohol type: wine Patient Tobacco Use Status: Never used Tobacco Smoked in Last 30 Days: No Use of substances other than those prescribed or required for medical reasons: Yes Substance Use Type: Marijuana Substance Use Frequency: Occasionally Advance Directives: No Advance Directives Information Provided: Yes Patient : No service: No Physical Exam Vital Signs: Vital Signs: Last Vital Signs Temp 98.7 F 12/17/23 04:51 Pulse 85 12/17/23 04:51 Resp 16 12/17/23 04:51 BP 133/74 12/17/23 04:51 Pulse Ox 98 12/17/23 04:51 O2 Del Method Room Air 12/17/23 04:51 BMI result Body Mass Index 26.9 Appearance: Alert. Oriented X3. No acute distress. Eyes: PERRLA, no pallor or icterus ENT: Pharynx normal. Oral Mucosa moist Neck: Normal inspection. Neck supple. CVS: Normal heart rate and rhythm. Pulses normal. Respiratory: No respiratory distress. Equal air entry bilateral, no wheezing/rales/rhonchi Abdomen: Soft and nontender. Bowel sounds are present, no mass palpable, no CVA tenderness Skin: Skin warm and dry. Normal skin color. Normal skin turgor. Extremities: No lower extremity edema. No calf tenderness psych: Mood stable denies any significant depression no SI or HI at this time Neuro: Oriented X 3. No motor deficit. Medical Decision Making Medical Decision Making [facility] Narrative: Patient is refusing labs as does not want to pay bills will get consult care team for further evaluation patient denied any SI at this time but feel depressed patient did have alcohol last night and took only 4 tablets of Tylenol PM which is reliable and nontoxic does patient is alert oriented x3 case discussed with patient's family who really want her to be evaluated by care team because of significant depression Discharge Plan Discharge Clinical Impression: Depression, Suicidal ideation Patient Disposition: Still a Patient Prescriptions: No Action lisinopril 20 mg Tablet 20 mg PO DAILY Qty: 30 0RF Protocol: Hold for SBP< HOLD for SBP < : 90 amlodipine 10 mg Tablet 10 mg PO DAILY Qty: 30 0RF Protocol: Hold for SBP< HOLD for SBP < : 90 Interventions: [place]-Suicide Risk Severity Scale Last Done: 12/17/23 04:20 Print Language: Citizen Of [place]
--- NOTE | 2023-12-17 02:01 | PC.NURSE ---
Pt continues to refuse blood work and EKG, provider made aware.
[2023-12-17 02:43] VITALS: BP 136/76; PULSE 80; RESP 20
[2023-12-17 04:51] VITALS: BP 133/74; PULSE 85; RESP 16; TEMP 37.1; O2SAT 98
--- NOTE | 2023-12-17 04:53 | MHC.EDTECH ---
This PCT asked patient if I can do an EKG and draw labs and patient refused. I educated patient that it is a delay in care. Patient asked me for her cellphone and I explained per policy her belongings are locked up and she may use the patient phone with a staff member at bedside
[2023-12-17 06:38] VITALS: BP 128/69; PULSE 83; RESP 13; TEMP 36.9; O2SAT 97
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
[2023-12-17 11:33] VITALS: BP 128/69; PULSE 83; RESP 13; TEMP 36.9; O2SAT 97
== END 2023-12-17 11:47 | disposition home or self-care (01) ==
PROVIDERS: Emergency Provider Internal Medicine; PCP Internal Medicine
DX: F33.1 Major depressive disorder, recurrent, moderate (principal); R45.851 Suicidal ideations; Z63.0 Problems in relationship with spouse or partner; Z79.899 Other long term (current) drug therapy
CPT/HCPCS: 99284; S9485